=== PATIENT | male | born 1995 | race African-American/Black ===

== ENCOUNTER 2019-01-02 21:40 | Emergency (ER) | payer BC ==
[2019-01-02] MEDS ORDERED: DIPH/PERTUSS(ACELL)/TETANUS VAC/PF 0.5 ML SYR (>=10YO) IM ONE (22:03)
[2019-01-02 22:04] VITALS: BP 138/82
--- NOTE | 2019-01-02 22:07 | ER Document Report ---
HPI - HPI Patient complains to provider of: Laceration Time Seen by Provider: 01/02/19 22:01 Onset: This afternoon Onset/Duration: Sudden Quality of pain: No pain Context: 23-year-old male presents emergency department with laceration to his inner thigh. He was at work and his leg went through the roof and he scratched his thigh. He does not remember the last tetanus he had. Reports it happened earlier today. Denies pain ambulating without any problems. No complaints of fever vomiting diarrhea. Associated Symptoms: None Exacerbated by: Denies Relieved by: Denies Similar symptoms previously: No Recently seen / treated by doctor: No Past Medical History - General Information source: Patient - Social History Smoking Status: Unknown if Ever Smoked Family History: None Patient has suicidal ideation: No Patient has homicidal ideation: No Pulmonary Medical History: Reports: Hx Asthma Surgical Hx: Negative Vertical Provider Document - CONSTITUTIONAL Agree With Documented VS: Yes Exam Limitations: No Limitations General Appearance: WD/WN, No Apparent Distress - HEENT HEENT: Atraumatic, Normocephalic - NECK Neck: Supple - RESPIRATORY Respiratory: No Respiratory Distress - CARDIOVASCULAR Cardiovascular: Regular Rate - MUSCULOSKELETAL/EXTREMETIES Musculoskeletal/Extremeties: MAEW, FROM, Non-Tender - NEURO Level of Consciousness: Awake, Alert, Appropriate Motor/Sensory: No Motor Deficit - DERM Integumentary: Warm, Dry, Laceration - vertical scrape to left inner thigh, superficial ~12 cm long, no active bleeding Adult Front & Back Diagram: 1 - superficial scratch to left inner thigh Course - Re-evaluation Re-evalutation: 01/02/19 22:43 Area cleaned tetanus prescribed patient instructed on signs and symptoms of infection. He verbalized understanding to all instructions. Dictation of this chart was performed using voice recognition software; therefore, there may be some unintended grammatical errors. Discharge - Discharge Clinical Impression: Laceration of left thigh Qualifiers: Encounter type: initial encounter Qualified Code(s): S71.112A - Laceration without foreign body, left thigh, initial encounter Condition: Stable Disposition: HOME, SELF-CARE Instructions: Soap Cleansing ([facility]), Tetanus Immunization Given ([facility]) Additional Instructions: *You have been treated for laceration to your thigh *You have received a tetanus *Monitor the site for signs of infection such as increasing pain, redness, swelling, warmth *Keep the area clean *Follow up with a primary care provider within one week for recheck *Return to ED for signs of infection, worsening condition, changes, needs Monitor your blood pressure. Your blood pressure was elevated today. This may be because you were anxious, in pain or because you need medication. It is important to follow up with your primary care provider for full evaluation. Forms: Elevated Blood Pressure
== END 2019-01-02 23:10 | disposition home or self-care (01) ==
LOC: ER 21:40
DX: S71.112A Laceration without foreign body, left thigh, initial encounter (principal); W13.2XXA Fall from, out of or through roof, initial encounter; Y93.9 Activity, unspecified; Z23 Encounter for immunization
CPT/HCPCS: 90471; 90715; 99282

== ENCOUNTER 2019-04-22 18:15 | Emergency (ER) | payer BC ==
[2019-04-22] MEDS ORDERED: RINGERS LACTATED IV ONE (18:24)
[2019-04-22] MEDS ORDERED: ACETAMINOPHEN 325 MG TABLET PO ONE (18:29)
--- NOTE | 2019-04-22 18:37 | ER Document Report ---
ED Medical Screen (RME) - General Chief Complaint: Fever Stated Complaint: FEVER,COUGH,BODY ACHES Time Seen by Provider: 04/22/19 18:23 Mode of Arrival: Ambulatory Information source: Patient Notes: 23-year-old male presented to ED for complaint of fever fatigue, nausea vomiting and scratchy throat and body aches all over. He is tachycardic with a decrease in blood pressure and a high fever. We will treat him with Tylenol IV fluids and get a septic work-up started. I have also ordered flu strep and urine. I have greeted and performed a rapid initial assessment of this patient. A co mprehensive ED assessment and evaluation of the patient, analysis of test results and completion of medical decision making process will be conducted by an additional ED providers. TRAVEL OUTSIDE OF THE [place] IN LAST 30 DAYS: No - Related Data Allergies/Adverse Reactions: Sulfa (Sulfonamide Antibiotics) Allergy (Verified 04/22/19 18:28) Past Medical History - General Information source: Patient - Social History Cigarette use (# per day): Yes Frequency of alcohol use: Occasional Drug Abuse: None Lives with: Family Family history: Reviewed & Not Pertinent - Past Medical History Cardiac Medical History: Reports: None Pulmonary Medical History: Reports: Hx Asthma EENT Medical History: Reports: None Neurological Medical History: Reports: None Endocrine Medical History: Reports: None Renal/ Medical History: Reports: None Malignancy Medical History: Reports None GI Medical History: Reports: None Musculoskeltal Medical History: Reports None Skin Medical History: Reports None Psychiatric Medical History: Reports: None Traumatic Medical History: Reports: None Infectious Medical History: Reports: None Past Surgical History: Reports: Hx Umbilical Hernia - Immunizations Immunizations up to date: Yes Hx Diphtheria, Pertussis, Tetanus Vaccination: Yes History of Influenza Vaccine for 12/2018 - 05/2019 Season: Yes Physical Exam - Vital signs Vitals: Temp Pulse Resp BP Pulse Ox 103.1 F H 120 H 24 H 114/56 L 100 04/22/19 18:22 04/22/19 18:22 04/22/19 18:22 04/22/19 18:22 04/22/19 18:22 Course - Vital Signs Vital signs: Temp Pulse Resp BP Pulse Ox 103.1 F H 120 H 24 H 114/56 L 100 04/22/19 18:22 04/22/19 18:22 04/22/19 18:22 04/22/19 18:22 04/22/19 18:22
--- NOTE | 2019-04-22 18:57 | RADIOLOGY REPORT (SQ) ---
EXAM DESCRIPTION: CHEST 2 VIEWS COMPLETED DATE/TIME: 04/22/2019 6:44 pm REASON FOR STUDY: fever COMPARISON: None. EXAM PARAMETERS: NUMBER OF VIEWS: two views TECHNIQUE: Digital Frontal and Lateral radiographic views of the chest acquired. RADIATION DOSE: NA LIMITATIONS: none FINDINGS: LUNGS AND PLEURA: No opacities, masses or pneumothorax. No pleural effusion. MEDIASTINUM AND HILAR STRUCTURES: No masses or contour abnormalities. HEART AND VASCULAR STRUCTURES: Heart normal size. No evidence for failure. BONES: No acute findings. HARDWARE: None in the chest. OTHER: No other significant finding. IMPRESSION: NO ACUTE RADIOGRAPHIC FINDING IN THE CHEST. TECHNICAL DOCUMENTATION: JOB ID: [id number] [employer]- All Rights Reserved Reading location - IP/workstation name: [email or web address]
[2019-04-22 19:33] LABS: VENOUS BLOOD BASE EXCESS 4.8 mmol/L; VENOUS BLOOD PCO2 46.4 mmHg (35-63); VENOUS BLOOD PH 7.43 (7.30-7.42)
[2019-04-22 19:48] LABS: INTERNATIONAL RATION (INR) 1.17
[2019-04-22 19:50] LABS: ABSOLUTE LYMPHOCYTES (AUTO) 0.4 10^3/uL (0.5-4.7); ABSOLUTE MONOCYTES (AUTO) 1.1 10^3/uL (0.1-1.4); ABSOLUTE NEUT (AUTO) 4.2 10^3/uL (1.7-8.2); BASOPHILS % (AUTO) 0.5 % (0-2); EOSINOPHILS % (AUTO) 0.7 % (0-6); HEMATOCRIT 42.4 % (37.9-51.0); HEMOGLOBIN 14.5 g/dL (13.5-17.0); LYMPHOCYTES % (AUTO) 6.7 % (13-45); MEAN CORPUSCULAR HEMOGLOBIN 31.8 pg (27.0-33.4); MEAN CORPUSCULAR HGB CONC 34.3 g/dL (32.0-36.0); MEAN CORPUSCULAR VOLUME 93 fl (80-97); MONOCYTES % (AUTO) 18.4 % (3-13); PLATELET COUNT 281 10^3/uL (150-450); RED BLOOD COUNT 4.58 10^6/uL (4.35-5.55); RED CELL DISTRIBUTION WIDTH 12.7 % (11.5-14.0); SEGMENTED NEUTROPHILS % (AUTO) 73.7 % (42-78); TOTAL CELLS COUNTED % (AUTO) 100 %; WHITE BLOOD COUNT 5.7 10^3/uL (4.0-10.5)
[2019-04-22 20:07] LABS: ALKALINE PHOSPHATASE 82 U/L (38-126); ANION GAP 9 (5-19); ASPARTATE AMINO TRANSFERASE 32 U/L (17-59); BILIRUBIN,TOTAL 0.6 mg/dL (0.2-1.3); BLOOD UREA NITROGEN 9 mg/dL (7-20); CARBON DIOXIDE 29 mmol/L (22-30); CHLORIDE 99 mmol/L (98-107); POTASSIUM 3.9 mmol/L (3.6-5.0); TOTAL PROTEIN 7.5 g/dL (6.3-8.2)
[2019-04-22 20:09] LABS: GLUCOSE 69 mg/dL (75-110)
[2019-04-22] MEDS ORDERED: OSELTAMIVIR PHOSPHATE 75 MG CAPSULE PO ONE (20:47)
[2019-04-22] MEDS ORDERED: IBUPROFEN 800 MG TABLET PO ONE (20:47)
[2019-04-22 20:50] LABS: A TYPE INFLUENZA AG NEGATIVE (NEGATIVE); B INFLUENZA AG NEGATIVE (NEGATIVE)
[2019-04-22 21:20] LABS: CHLAM PCR NOT DETECTED (NOT DETECT)
[2019-04-22] MEDS ORDERED: CEFTRIAXONE INJ 1000 MG VIAL IV ONE (21:26)
[2019-04-22] MEDS ORDERED: AZITHROMYCIN 1 GM SUSP PACKET PO ONE (21:27)
--- NOTE | 2019-04-22 21:33 | ER Document Report ---
ED General - General Chief Complaint: Fever Stated Complaint: FEVER,COUGH,BODY ACHES Time Seen by Provider: 04/22/19 18:23 Mode of Arrival: Ambulatory TRAVEL OUTSIDE OF THE [place] IN LAST 30 DAYS: No - HPI Onset: Just prior to arrival Onset/Duration: Sudden Quality of pain: Achy Severity: Moderate Context: Heatlhy 23 year old male arrives with fever, scratchy throat and cough which is nonproductive for 1 day. No sick contacts. No rash. No headache. Asthma as child but no asthma is years and no medicines for same. Exacerbated by: Denies Relieved by: Denies - Related Data Allergies/Adverse Reactions: Sulfa (Sulfonamide Antibiotics) Allergy (Verified 04/22/19 18:28) Past Medical History - General Information source: Patient - Social History Smoking Status: Never Smoker Cigarette use (# per day): Yes Chew tobacco use (# tins/day): No Frequency of alcohol use: Occasional Drug Abuse: None Lives with: Family Family History: None Patient has suicidal ideation: No Patient has homicidal ideation: No - Past Medical History Cardiac Medical History: Reports: None Pulmonary Medical History: Reports: Hx Asthma EENT Medical History: Reports: None Neurological Medical History: Reports: None Endocrine Medical History: Reports: None Renal/ Medical History: Reports: None Malignancy Medical History: Reports None GI Medical History: Reports: None Musculoskeletal Medical History: Reports None Skin Medical History: Reports None Psychiatric Medical History: Reports: None Traumatic Medical History: Reports: None Infectious Medical History: Reports: None Past Surgical History: Reports: Hx Umbilical Hernia - Immunizations Immunizations up to date: Yes Hx Diphtheria, Pertussis, Tetanus Vaccination: Yes Review of Systems - Review of Systems Constitutional: See HPI, Chills, Fever EENT: No symptoms reported Cardiovascular: No symptoms reported Respiratory: See HPI, Cough Gastrointestinal: No symptoms reported Genitourinary: No symptoms reported Male Genitourinary: No symptoms reported Musculoskeletal: No symptoms reported Skin: No symptoms reported Hematologic/Lymphatic: No symptoms reported Neurological/Psychological: No symptoms reported Physical Exam - Vital signs Vitals: Temp Pulse Resp BP Pulse Ox 103.1 F H 120 H 24 H 114/56 L 100 04/22/19 18:22 04/22/19 18:22 04/22/19 18:22 04/22/19 18:22 04/22/19 18:22 Interpretation: Normal - General General appearance: Appears well, Alert - HEENT Head: Normocephalic, Atraumatic Eyes: Normal Pupils: PERRL - Respiratory Respiratory status: No respiratory distress Chest status: Nontender Breath sounds: Normal Chest palpation: Normal - Cardiovascular Rhythm: Regular Heart sounds: Normal auscultation Murmur: No - Abdominal Inspection: Normal Distension: No distension Bowel sounds: Normal Tenderness: Nontender Organomegaly: No organomegaly - Back Back: Normal, Nontender - Extremities General upper extremity: Normal inspection, Nontender, Normal color, Normal ROM, Normal temperature General lower extremity: Normal inspection, Nontender, Normal color, Normal ROM, Normal temperature, Normal weight bearing. No: Petra's sign - Neurological Neuro grossly intact: Yes Cognition: Normal Orientation: AAOx4 [place] Coma Scale Eye Opening: Spontaneous [place] Coma Scale Verbal: Oriented [place] Coma Scale Motor: Obeys Commands [place] Coma Scale Total: 15 Speech: Normal Motor strength normal: LUE, RUE, LLE, RLE Sensory: Normal - Psychological Associated symptoms: Normal affect, Normal mood - Skin Skin Temperature: Warm Skin Moisture: Dry Skin Color: Normal Course - Re-evaluation Re-evalutation: 04/22/19 21:32 MDM Healthy 23 year old with negative/ reassuring lab evaluation for serious infection. Urethritis presetn though and will treat. Nontoxic here. Discussed safe sex and will cover flu with high incidence locally. - Vital Signs Vital signs: Temp Pulse Resp BP Pulse Ox 103.0 F H 120 H 22 H 103/45 L 96 04/22/19 20:05 04/22/19 18:22 04/22/19 20:01 04/22/19 20:00 04/22/19 20:01 - Laboratory Result Diagrams: 04/22/19 19:12 04/22/19 19:12 Laboratory results interpreted by me: 04/22/19 04/22/19 04/22/19 19:12 19:12 19:12 Lymph % (Auto) 6.7 L Mitchell % (Auto) 18.4 H Absolute Lymphs (auto) 0.4 L VBG pH 7.43 H Glucose 69 L N.gonorrhoeae DNA (PCR) 04/22/19 19:16 Lymph % (Auto) Mitchell % (Auto) Absolute Lymphs (auto) VBG pH Glucose N.gonorrhoeae DNA (PCR) DETECTED H - Diagnostic Test Radiology reviewed: Reports reviewed Discharge - Discharge Clinical Impression: Acute febrile illness, Urethritis Condition: Good Disposition: HOME, SELF-CARE Instructions: Acetaminophen, Family Physicians / Practices, Fever ([facility]), Viral Syndrome ([facility]) Additional Instructions: Take tylenol and alternate tylenol and motrin for fever. See your doctor in follow up. No sex for 7 days and use condoms if you choose to have sex. Prescriptions: Oseltamivir Phosphate [Tamiflu 75 mg Capsule] 75 mg PO BID #9 capsule
[2019-04-22 21:49] VITALS: BP 122/56
[2019-04-22 23:33] LABS: APPEARANCE,URINE SLIGHTLY-CLOUDY; BILIRUBIN,URINE NEGATIVE (NEGATIVE); COLOR,URINE YELLOW; GLUCOSE, URINE NEGATIVE (NEGATIVE); KETONES,URINE NEGATIVE (NEGATIVE); LEUKOCYTE ESTERASE,URINE MODERATE (NEGATIVE); NITRITE,URINE NEGATIVE (NEGATIVE); PROTEIN,URINE NEGATIVE (NEGATIVE); URINE SPECIFIC GRAVITY 1.016
== END 2019-04-22 22:03 | disposition home or self-care (01) ==
LOC: ER 18:15
DX: N34.2 Other urethritis (principal); R50.9 Fever, unspecified; R05 Cough; M79.10 Myalgia, unspecified site; J02.9 Acute pharyngitis, unspecified; Z88.2 Allergy status to sulfonamides; J45.909 Unspecified asthma, uncomplicated
CPT/HCPCS: 99283; 96361; 96365; 36415; 87040; 87070; 87880; 82962; 83605; 85025; 85610; 80053; 81001; 87491; 87591; 82803; 87804; 71046; Q0144; J0696; J3490; J7120